=== PATIENT | male | born 1990 | race Caucasian/White ===

== ENCOUNTER 2020-02-18 13:29 | Emergency (ER) | payer BC, SELFPAY ==
[2020-02-18 14:05] VITALS: BP 104/60; PULSE 112; RESP 18; TEMP 37.9; O2SAT 95
[2020-02-18 14:32] LABS: Hemoglobin 13.8 g/dL (14.0-18.0); Mean Corpuscular HGB Conc 32.9 g/dL (32.0-36.0); Mean Corpuscular Hemoglobin 29.1 pg (27.0-31.0); Mean Corpuscular Volume 88.6 fL (78.0-102.0); Mean Platelet Volume 9.5 fl (8.7-11.0); Platelet Count Result 199 K/mm3 (150-420); Red Blood Count 4.74 M/mm3 (4.70-6.10); Red Cell Distribution Width 12.4 % (11.6-14.4); White Blood Count 8.6 K/mm3 (4.8-10.8)
[2020-02-18] MEDS: ONDANSETRON INJ 4 MG/2 ML VIAL IV PUSH (14:40)
[2020-02-18] MEDS: SODIUM CHLORIDE 0.9% IV 1,000 ML 999 ML IV CONT (14:40)
[2020-02-18 14:47] LABS: Alanine Aminotransferase 19 U/L (16-63); Albumin Level 3.7 g/dL (3.4-5.0); Alkaline Phosphatase 64 U/L (46-116); Anion Gap 10 mmol/L (8-16); Aspartate Amino Transferase 12 U/L (15-37); Bilirubin,Total 0.7 mg/dL (0.00-1.00); Blood Urea Nitrogen 16 mg/dL (7-18); Calcium 8.5 mg/dL (8.5-10.1); Carbon Dioxide 27 mmol/L (21-32); Chloride 100 mmol/L (98-108); Estimated CRCL calculation 62 ml/min; Estimated Glomerular Filt Rate 52; Glucose 112 mg/dL (70-99); Osmolality Calculated 286 mOsm/kg (285-295); Potassium 3.9 mmol/L (3.5-5.1); Sodium 137 mmol/L (136-145); Total Protein 8.1 g/dL (6.4-8.2)
[2020-02-18 14:54] LABS: Influenza Control Valid (Valid)
--- NOTE | 2020-02-18 15:11 | ED.FEVER ---
HPI - Fever General Chief Complaint: Fever Stated Complaint: fever Source: patient Mode of arrival: ambulatory Limitations: no limitations History of Present Illness HPI Narrative: this is a 29-year-old male who presents with a temperature of 102? at home has been having some nausea, with some episodes of diarrhea and crampy abdominal pain with body aches no chills no neck stiffness no cough or shortness of breath no abdominal pain no dysuria. Patient's family has been tested negative for COVID. elicited complaint: fever Onset (ago): day(s) Measured temperature: 102 C Exacerbating factors: exertion Relieving factors: rest Associated symptoms: headache, nausea, diarrhea and other ( Body aches) Related Data Allergies Allergy/AdvReac Type Severity Reaction Status Date / Time No Known Allergies Allergy Verified 07/30/19 08:48 Review of Systems Review of Systems: All systems reviewed & are unremarkable except as noted in HPI and below PMFSH Past Medical History Medical History Anxiety disorder, unspecified Social History Social History Social History: drinks 4 cups of coffee per day Smoking status: Never smoker Second hand tobacco smoke exposure: No Alcohol intake: current Substance use: never Substance use type: does not use Additional living arrangements comments: with and kids 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 Gender identity (if verbalized by the patient): Male Exam Const: General: healthy appearing, no acute distress and alert Orientation/consciousness: patient oriented x3 HENMT: Head: normal to inspection Eyes: Conjunctivae: conjunctivae normal Pupils: Equal, round and reactive pupils present EOM: EOMs intact bilaterally Neck: Neck: normal visual inspection, no lymphadenopathy and no meningeal signs Chest: Chest palpation & inspection: normal inspection of the chest Resp: Effort & Inspection: normal respiratory effort Auscultation: clear to auscultation bilaterally Cardio: Rate: regular rate Rhythm: regular rhythm GI: GI Palp: Yes Soft to palpation Auscultation: Hyperactive bowel sounds present Back/Spine/Pelvis: Back: no CVA tenderness Skin: General skin exam: normal color Rashes: no rashes Neuro: General: patient oriented x3, moves all extremities and no meningeal signs Extrem: General: normal to inspection and no pedal edema Psych: Mental Status: mental status grossly normal Course 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 Vital Signs Vital signs: Vital Signs Temperature 37.9 C H 02/18/20 14:05 Pulse Rate 112 H 02/18/20 14:05 Respiratory Rate 18 02/18/20 14:05 Blood Pressure 104/60 02/18/20 14:05 Pulse Oximetry 95 02/18/20 14:05 Temperature 37.9 C H 02/18/20 14:05 Pulse Rate 112 H 02/18/20 14:05 Respiratory Rate 18 02/18/20 14:05 Blood Pressure 104/60 02/18/20 14:05 Pulse Oximetry 95 02/18/20 14:05 MDM - Fever Lab Data Result diagrams: 02/18/20 14:27 02/18/20 14:27 Labs: Lab Results 02/18/20 02/18/20 02/18/20 Range/Units 14:27 14:27 14:27 WBC 8.6 (4.8-10.8) K/mm3 RBC 4.74 (4.70-6.10) M/mm3 Hgb 13.8 L (14.0-18.0) g/dL Hct 42.0 (40.0-54.0) % MCV 88.6 (78.0-102.0) fL MCH 29.1 (27.0-31.0) pg MCHC 32.9 (32.0-36.0) g/dL RDW 12.4 (11.6-14.4) % Plt Count 199 (150-420) K/mm3 MPV 9.5 (8.7-11.0) fl Sodium 137 (136-145) mmol/L Potassium 3.9 (3.5-5.1) mmol/L Chloride 100 (98-108) mmol/L Carbon Dioxide 27 (21-32) mmol/L Anion Gap 10 (8-16) mmol/L BUN 16 (7-18) mg/dL Creatinine 1.59 H (0.70-1.30) mg/dL Estim Creat Clear Calc 62 ml/min Estimated GFR 52 L (59 - ) Glucose 112 H (70-99) mg
[2020-02-18] MEDS: ACETAMINOPHEN 500 MG TABLET 1000 MG PO (15:14)
[2020-02-18 15:45] VITALS: BP 102/60; PULSE 88; RESP 16; TEMP 37.1; O2SAT 97
[2020-02-19 13:55] LABS: SARS-CoV-2 RNA PCR Negative
== END 2020-02-18 15:48 | disposition home or self-care (01) ==
PROVIDERS: Emergency Provider Emergency Medicine
DX: K52.9 Noninfective gastroenteritis and colitis, unspecified (principal)
CPT/HCPCS: 36415; 80053; 85027; 87635; 87804; 96361; 96374; 99283; 99284; C9803; J2405; J7030; U0003